=== PATIENT | male | born 1975 ===

== ENCOUNTER → 2017-02-08 | Day surgery (SDC) | payer OTHER ==
[~2017-02-08] VITALS: Ht 188 cm; Wt 122.6 kg
[2017-02-08] VITALS (12 sets, daily range): BP systolic 120–137; BP diastolic 64–86; PULSE 55–70; RESP 12–17; O2SAT 94–100
[~2017-02-08] MED LIST: Bupivacaine-MPF 0.5% 30 mL Inj INFILTRATE ONE; CeFAZolin Inj 3 GM in Dextrose 5% 50 ML IV ONE; Dexamethasone 4 mg/mL Inj IVPUSH PRN; Dexamethasone 4 mg/mL Inj ONE; EPHEDrine Sulfate 50 mg/mL Inj IVPUSH PRN; HYDROcodone-APAP 5-325 mg Tablet PO PRN; Lactated Ringer's 1,000 ML IV SCH; Lactated Ringer's 500 ML IV PRN; MetoCLOpramide 5 mg/mL 2 mL Inj IVPUSH PRN; Ondansetron 2 mg/mL 2 mL Inj IVPUSH PRN; Ondansetron 2 mg/mL 2 mL Inj ONE; Phenylephrine 10,000 mCg/mL Inj IVPUSH PRN; Propofol 10,000 mCg/mL 20 mL Inj ONE; fentaNYL-PF 50 mCg/mL 2 mL Inj ONE
[2017-02-08] MEDS: Lactated Ringer's 1,000 ML IV SCH ×2 (08:17→09:05)
--- NOTE | 2017-02-08 08:58 | PCM.HPANE ---
Patient Data Surgeon Admitting Provider: Attending Provider:John Naranjo MD Primary Care Physician:Mat Other Provider:Agus Fu Anesthesia Reason for Visit Right Inguinal Hernia Ht/WT & BMI Height (Feet): 6 Height (Inches): 2 Weight (Kilograms): 122.6 Body Mass Index 34.00 Allergies Coded Allergies: oxycodone (Verified Allergy, Unknown, throat swells, trouble breathing, ) Past Anesthesia History Anesthesia History: Positive for:: Anesthesia Reactions, Denies:: Abnormal Airway, Difficult Intubation, Fam Anesthesia Reaction, Fam Malignant Hypertherm, Malignant Hyperthermia Diabetes History Hx Diabetes?: No MRSA MRSA: No Medications Hypertension Medication: No Home Meds Incl Beta Nataliya: No No Active Prescriptions or Reported Meds History History of ENT Problems?: No HEENT History: Denies:: Abnormal Airway Cataracts Difficult Intubation Dysphagia Glaucoma Hearing Problem Sinus Problem TMJ (grinds a little, no nightguard) Denture Type: None Teeth Condition: Within Normal Limits Hx of Heart Problems?: No Cardiovascular History: Denies:: AICD Abdominal Aortic Aneurism Atrial Fibrillation Coronary Artery Disease Edema Heart Murmur Hypertension Irregular Heartbeat Pacemaker Peripheral Vascular Hx of Respiratory Problem?: No Respiratory History: Positive for:: Use of C-PAP Machine (hx of sleep apnea , doing sleep studies now ) Denies:: Asthma COPD Emphysema Hemoptysis Oxygen Administration Pneumonia Pulmonary Embolism Tuberculosis Hx Neurologic Problems?: Yes Neurological History: Positive for:: Seizures (as child with head injury- at age 7 or 8 stopped at age 15) Denies:: Alzheimer's Disease CVA Headaches Multiple Sclerosis Parkinson's Disease Hx of GI Problems?: Yes Other GI Pertinent History: right inguinal hernia current admission problem Hx of Problems?: Yes Genitourinary History: Positive for:: Kidney Stones (kidney stones- passed spontaneously) Denies:: Urinary Tract Infection Male Hx: Denies:: Prostate Problems Skin History: Denies:: History Skin Disorders? Pressure Ulcers Hx Musculoskeletal Problems?: Yes Musculoskeletal History: Positive for:: Back Injury (low back sciatica, hx of back surgery) Denies:: Degenerative Joint Fibromyalgia Joint Replacement Musculoskeletal Trauma Myasthenia Gravis Osteoarthritis Rheumatoid Arthritis Systemic Lupus Hx of Psycho/Social Problems?: No Psycho Social History: Denies:: Anxiety Hx Depression Hx Surgeries?: Yes (shoulder repair-rcr, lami) Hx Any Other Health Problems?: Yes Other History: Denies:: Cancer Thyroid Disease History Blood Transfusions: Positive for:: Accept Blood Products? Denies:: Blood Transfusions Hx Diabetes: No Hx Alcohol Use: NoHx Substance Use: NoHave You Smoked inLast 12 mo: No Stop/Bang S-Snoring: Do You Snore Loudly: No T-Tired: feel tired, fatigued: No O-Obsered: Observed not breath: No P-Blood Pressure: treated: No B- Body Mass Index > 35 kg/m2: No A- Age over 50: Yes N- Neck Large Circumference: No G- Gender Male: Yes STEPHEN Total Score: 2 Risk Assessment Category Category 1A: Patient has history of documented sleep apnea, and HAS NOT received any narcotic, sedative or anesthesia administration during this stay. Category 1B: Patient has history of documented sleep apnea, and HAS received any narcotic , sedative or anesthesia administration during this stay Category 2: Patient has SUSPECTED Obstructive Sleep Apnea, and HAS received any narcotic , sedative or anesthesia administration during this stay. Category 3: Patient has SUSPECTED Obstructive Sleep Apnea and HAS NOT received narcotic, sedative or anesthesia administration during this stay. Category 4: Outpatient in Procedural Areas with known sleep apnea or who screen positive for High Risk via the STOP/BANG questionnaire. Exam Exam Vital Signs Vital Signs Date Time Temp Pulse Resp B/P Pulse Ox O2 Delivery O2 Flow Rate FiO2 02/08/17 08:31 36.3 60 16 132/84 98 Room Air General Appearance: Alert, Oriented X3, Cooperative, No Acute Distress HEENT/AIRWAY: MP 2 Lungs: Normal Air Movement Heart: Regular Rate/Rhythm Meds/Labs/Diagnostics Admission Meds Current Medications Lactated Ringer's (Lr) 1,000 ml @ 120 mls/hr [id number] IV Last administered on t 08:17; Start 02/08/17 at 05:00; Stop 02/08/17 at 13:19 Plan Impression Patient chart reviewed, patient interviewed and anesthestic plan with risks, benefits, and alternatives discussed, and informed consent obtained. ASA Physical Status: ASA2 Mod Systemic Disease Anesthetic Plan: GA Bene/Risks/Altern/Consents: Yes HP Complete Prior to Induction: Yes Ghulam Larson MD Feb 08, 2017 08:58
--- NOTE | 2017-02-08 10:10 | PCM.DISURG ---
Surgical Discharge Instruction Date of Service Feb 08, 2017 Dates of Hospitalization Date of Hospital Admission Providers Admitting Physician: Primary Care Physician: Mat Attending Physician: John Naranjo MD Discharge Diagnosis Discharge Diagnosis Direct right inguinal hernia Diet Discharge Diet: No restrictions Activity Discharge Activity-General: Activity as pain allows, No lifting >15 pounds for 2 weeks Dressing and Incisional Care Dressing Care: Allow Steri Stripes to fall off, Remove outer dressing after 24 hrs Hygiene: May shower after (24 hours) Follow Up Plan Follow Up Plan In the [facility] postoperative clinic in 2-3 weeks Call your provider for: Fever (over 101.5), Vomiting, Discharge @ incision, pus discharge John Naranjo MD Feb 08, 2017 10:10
--- NOTE | 2017-02-08 10:20 | PCM.SURGOP ---
Surgical Operative Report Date of Service: Feb 08, 2017 Pre Operative Diagnosis Right inguinal hernia Post Operative Diagnosis Direct right inguinal hernia Procedure: Right inguinal hernia repair with mesh Surgeon and Special Procedure Technologist: Surgeon: John Naranjo MD Assistants: Agustin Cano PA-C Indication for Procedure 41-year-old man who developed sudden onset of a popping sensation and a visible bulge in his right groin. On physical exam, he had a moderate-sized reducible right inguinal hernia. He had a past history of left inguinal hernia repair at age 9 or 10. After discussion of risks and benefits, he agreed to proceed with right inguinal hernia repair with mesh. Findings: There was a direct inguinal hernia defect. Procedure Details After smooth induction of general anesthesia, he was placed in the supine position with both arms out, and was prepped and draped in wide sterile fashion. A procedural polyps was performed according to the SCOAP checklist, an ultrasound-guided in agreement. A transverse incision was made in the skin lines of the right groin. Dissection was carried through the subcutaneous tissue with electrocautery until Gabriel's fascia was divided. The superficial inferior epigastric vein was cauterized and divided. The external oblique fascia was skeletonized down to the external inguinal ring. The external oblique fascia was opened sharply, taking care to not injure the underlying ilioinguinal nerve. There was a branch of the nerve heading along with the spermatic cord, which was ligated proximally, and it was divided and discarded. The right spermatic cord contents were encircled with a Houck drain. There was a moderate to large sized direct hernia defect containing preperitoneal fat. This was dissected free from the surrounding floor until the hernia contents could be easily reduced. There was a small cord lipoma which was dissected off the remaining cord structures and discarded. There was no indirect defect. The repair was then performed using the Bard 3 x 6 mesh, which was cut to size. It was secured in place using interrupted 0 Nurolon sutures, securing the mesh to the pubic tubercle, the shelving edge of the ilioinguinal ligament, the rectus fascia, and the conjoined tendon superiorly. A slit was cut in the mesh to allow it to be wrapped around the spermatic cord. The external oblique fascia was then closed using a running 3-0 Vicryl suture. Gabriel's fascia was closed with interrupted 3-0 Vicryl suture. The skin incision was closed using a running 4-0 Monocryl subcuticular stitch. Steri-Strips and sterile dressings were applied. At the end of the case needle and sponge counts were correct 2. The patient was awakened from anesthesia without difficulty, and taken to the recovery room in satisfactory condition, having tolerated the procedure well. Complications There were no periprocedural complications identified. Surgical Specimen Removed: No Specimen sent to Pathology: Not applicable Anesthetic Plan: GA Grafts, Implants: Implants-See Implant Record Output, Estimated Blood Loss: 20 Blood Administration during morales: No Drains: None Catheters: None copies to: Georgette Vazquez Joshua D MD Feb 08, 2017 10:20
[2017-02-08] MEDS: fentaNYL-PF 50 mCg/mL 2 mL Inj IVPUSH PRN ×2 (10:41→11:15)
[2017-02-08] MEDS: HYDROmorphone 1 mg/mL Inj IVPUSH PRN ×2 (10:57→11:06)
--- NOTE | 2017-02-08 15:46 | PCM.ANEP1 ---
Post Anesthesia PACU Phase 1 Assessment Vital Signs Vital Signs Date Time Temp Pulse Resp B/P Pulse Ox O2 Delivery O2 Flow Rate FiO2 02/08/17 13:06 94 Room Air 02/08/17 12:48 70 16 122/65 95 Room Air 02/08/17 11:44 66 16 128/76 98 Room Air 02/08/17 11:30 62 14 120/69 97 Room Air 02/08/17 11:15 36.5 60 12 127/64 97 Room Air 02/08/17 11:00 68 12 128/77 98 Room Air 02/08/17 10:50 58 16 137/80 94 Room Air 02/08/17 10:35 55 17 132/83 98 Room Air 02/08/17 10:30 62 16 132/82 100 Simple Mask 10 02/08/17 10:25 64 17 130/82 100 Simple Mask 10 02/08/17 10:20 37.2 65 14 129/86 100 Simple Mask 10 02/08/17 08:31 36.3 60 16 132/84 98 Room Air Anesthetic Administered: GA Level of Alertness: Awake, talking Pain: No Nausea or Vomiting: No CV Function & Hydration Stable: Yes Airway Device: Oxygen Delivery: Room Air Lungs: Normal Air Movement PACU Phase 2 Assessment Complications: No Follow up Care: N/A Patient Instructions Provided: N/A Ghulam Larson MD Feb 08, 2017 15:45
== END | disposition home or self-care (01) ==
LOC: SAS 08:09
PROVIDERS: ATTEND Student in an Organized Health Care Education/Training Program
DX: K40.90 Unilateral inguinal hernia, without obstruction or gangrene, not specified as recurrent (principal)
CPT/HCPCS: 49505; C1781; J0690; J1100; J1170; J1885; J2405; J2704; J3010; J7120